=== PATIENT | female | born 1950 | race Caucasian/White ===

== ENCOUNTER 2020-07-26 07:32 | Outpatient (NON) | payer OTHER, SELFPAY ==
[2020-07-26 17:37] LABS: SARS-CoV-2 RNA PCR Positive
== END 2020-07-26 07:33 ==
PROVIDERS: PCP Family Medicine Adolescent Medicine; Visit Provider Family Medicine Adolescent Medicine
DX: U07.1 COVID-19 (principal)
CPT/HCPCS: 87635; C9803; U0003

== ENCOUNTER → 2020-11-11 14:59 | Outpatient (CLI) | payer OTHER, SELFPAY ==
--- NOTE | ~2020-11-11 | MM_ITS ---
EXAMINATION: MM screening kailey BI w randy HISTORY: Screening TECHNIQUE: Craniocaudal and mediolateral oblique 3-D tomosynthesis images were obtained and synthetic 2-D images were generated. CAD analysis was submitted and interpreted. COMPARISON: Comparison to multiple prior studies sequentially, with oldest reviewed study dated 11/2010. BREAST PARENCHYMAL COMPOSITION: There are scattered areas of fibroglandular density. FINDINGS: There is no evidence of suspicious mass, calcification, or architectural distortion to sugg est malignancy in either breast. There has been no suspicious interval change. IMPRESSION: 1. No mammographic evidence of malignancy. 2. Recommend routine screening mammography in one year. BI-RADS Category 1: Negative Reviewed, dictated and finalized at location A. ATED [employer]ORMAN
== END ==
PROVIDERS: PCP Family Medicine Adolescent Medicine; Visit Provider Family Medicine Adolescent Medicine
DX: Z12.31 Encounter for screening mammogram for malignant neoplasm of breast (principal)
CPT/HCPCS: 77063; 77067

== ENCOUNTER → 2020-12-02 13:32 | Outpatient (CLI) | payer OTHER, SELFPAY ==
--- NOTE | ~2020-12-02 | MR_ITS ---
EXAMINATION: MR cervical spine wo con EXAM DATE: 12/02/2020 14:37 INDICATION: Left-sided cervical radiculopathy. Neck pain. TECHNIQUE: Multi-sequential, multiplanar MR images of the cervical spine were obtained without contra st. Axial T2, axial T2 MERGE sequence. Sagittal T1, T2, T2 fat saturation images also obtained. Th ere is no prior study for comparison. FINDINGS: There is moderate disc disease at C5-6 and 6-7, mild at C4-5. The vertebral bodies are ali gned in the AP dimension. The spinal cord signal intensity and intrinsic morphology is normal. Cervic omedullary junction is normal in appearance. There are no suspicious marrow signal abnormalities. Par aspinal soft tissue is unremarkable. Level by level evaluation: C2-C3: Disc does not extend beyond the endplate margin. Uncovertebral joint arthropathy: Mild bilateral. Facet joint arthropathy: None. Neural foraminal stenosis: No stenosis. Central canal stenosis: No stenosis. C3-C4: Disc does not extend beyond the endplate margin. Uncovertebral joint arthropathy: Mild bilateral. Facet joint arthropathy: Mild right. Neural foraminal stenosis: No stenosis. Central canal stenosis: No stenosis. C4-C5: There is a mild diffuse disc bulge. Uncovertebral joint arthropathy: Mild to moderate left, mild right. Facet joint arthropathy: Mild bilateral. Neural foraminal stenosis: Mild bilateral. Central canal stenosis: No stenosis. C5-C6: There is a mild diffuse disc bulge. Uncovertebral joint arthropathy: Severe bilateral. Facet joint arthropathy: Mild bilateral. Neural foraminal stenosis: Severe bilateral. Central canal stenosis: Mild. C6-C7: There is a mild diffuse disc bulge. Uncovertebral joint arthropathy: Moderate bilateral. Facet joint arthropathy: Mild. Neural foraminal stenosis: Moderate bilateral. Central canal stenosis: Mild. C7-T1: Disc does not extend beyond the endplate margin. Uncovertebral joint arthropathy: Moderate bilateral. Facet joint arthropathy: Moderate left, mild right. Neural foraminal stenosis: No stenosis. Central canal stenosis: No stenosis. IMPRESSION: 1. Significant neural foraminal stenosis C5-6 more than C6-7. Reviewed, dictated and finalized at location B. GRAPHER
== END ==
PROVIDERS: PCP Family Medicine Adolescent Medicine; Visit Provider Family Medicine Adolescent Medicine
DX: M47.23 Other spondylosis with radiculopathy, cervicothoracic region (principal); M48.03 Spinal stenosis, cervicothoracic region
CPT/HCPCS: 72141

== ENCOUNTER 2020-12-31 09:26 | Observation (INO) | payer OTHER, SELFPAY ==
--- NOTE | ~2020-12-31 | CT_ITS ---
EXAMINATION: CT abdomen pelvis w con DATE: 12/31/2020 10:28 INDICATION: Left lower quadrant abdominal pain TECHNIQUE: Computed tomography (CT) of the abdomen and pelvis was performed with 100 cc Omnipaque 350 intravenous contrast. Automated exposure control and iterative reconstruction technique were employe d. Exam dose: 337.58 mGy-cm total exam DLP. COMPARISON: None. FINDINGS: Heart size is within normal range. No pericardial or pleural effusion. There is minimal ate lectasis at the lung bases. The liver, gallbladder, bile ducts, spleen, pancreas, pancreatic duct, and adrenal glands appear norm al. Approximately 4 mm nonobstructing upper pole right renal calculus. 6 mm upper pole left renal cyst and 4 mm posterior mid left renal cyst. No ureteral calculus or hydro ureteronephrosis is evident. There is atherosclerotic calcification of the abdominal aorta and at the origins of the renal arterie s. No abdominal aortic aneurysm. No intraperitoneal or retroperitoneal or pelvic mass lesion or adeno vanessa or ascites. The urinary bladder is unremarkable. The uterus appears to be surgically absent. Diverticulosis of the left and right colon. There is thickening of the wall of the distal descending colon with pericolic fat stranding, consiste nt with diverticulitis. No abscess is identified. No bowel obstruction or intraperitoneal free air. Small fat-containing umbilical hernia. There is grade 1 anterolisthesis at L4-5 due to degenerative change at the apophyseal joints. There is concavity of the superior vertebral endplates of T9 and T10, chronic. There is degenerative spurring in the lower thoracic and to a lesser extent lumbar spine. Bilateral hip osteoarthritis, greater on the left. No suspicious osteolytic or osteoblastic lesions a re noted. IMPRESSION: Diverticulitis of the distal descending colon; no abscess is noted Diverticulosis of the left and right colon 4 mm nonobstructing upper pole right renal calculus Left renal cysts Reviewed, dictated and finalized at Location A. Reviewed, dictated and finalized at location B.
[2020-12-31 09:31] VITALS: BP 159/84; PULSE 98; RESP 18; TEMP 36.6; O2SAT 100
--- NOTE | 2020-12-31 09:34 | ED.GENADULT ---
HPI - General Adult General Chief complaint: Nausea/Vomiting/Diarrhea Stated complaint: Nausea - Diarrhea Time Seen by Provider: 12/31/20 09:28 Source: RN notes reviewed History of Present Illness HPI narrative: Patient presents emergency department from home for abdominal pain. Patient states that she has been having pain in the left abdomen radiating to the right back for the past 6 days. Patient states the pain is described as sharp and stabbing and radiates into the rectum states is associated with nausea and loose stools. She called her PCP as she has a history of diverticulitis and was started on Cipro and Flagyl 5 days ago but states that symptoms have been worsening. She has been taking Tylenol at home for the pain. Denies any fevers or chills chest pain shortness of breath or any other symptoms Related Data Home Medications Medication Instructions Recorded Confirmed alendronate 70 mg PO 12/31/20 ciprofloxacin HCl mg PO BID-TID 12/31/20 lifitegrast [Xiidra] drp 12/31/20 metronidazole 500 PO TID 12/31/20 simvastatin 40 mg 12/31/20 Allergies Allergy/AdvReac Type Severity Reaction Status Date / Time No Known Allergies Allergy Verified 12/31/20 09:46 Review of Systems Review of Systems: Narrative: Gen.: Denies fevers or chills ENT: Denies congestion Respiratory: Denies shortness of breath or cough CV: Denies chest pain or palpitations GI: See HPI denies burning, urgency, frequency or hematuria Musculoskeletal: Denies back pain or muscle pain Neuro: Denies numbness, tingling, weakness or focal weakness Skin: Denies rash Except as documented, all other systems reviewed and negative [facility] Past Medical History Medical History (Updated 12/31/20 @ 11:11 by Nelson Cast DO) Diverticulitis Social History Social History (Updated 12/31/20 @ 09:35 by Nelson Cast DO) Smoking status: Never smoker Exam Narrative: Exam Narrative: APPEARANCE: No acute distress, nontoxic, resting in bed HEENT: Normocephalic, atraumatic, OMM RESPIRATORY: No respiratory distress, clear to auscultation bilaterally with no rhonchi wheezing or rales CARDIOVASCULAR: RRR s murmur ABDOMINAL: Soft nondistended tender palpation left upper quadrant left lower quadrant no tenderness right upper quadrant right lower quadrant no rebound or guard MUSCULOSKELETAl: Moves all extremities. No clubbing, cyanosis or edema. NEURO: Awake and alert. Following commands, speech normal, no focal deficits SKIN:: Warm, dry. Normal Color PSYCHIATRIC: Normal affect/mood Course Course Emergency Course: Called and discussed with presentation work-up agrees with admission at this time Discussed with patient and family results of workup and diagnosis. Discussed need for admission. Patient and family understand and agree to current treatment plan Vital Signs Vital signs: Vital Signs Temperature 97.8 F 12/31/20 09:31 Pulse Rate 98 12/31/20 09:31 Respiratory Rate 18 12/31/20 09:31 Blood Pressure 159/84 H 12/31/20 09:31 Pulse Oximetry 100 12/31/20 09:31 Temperature 97.8 F 12/31/20 09:31 Pulse Rate 98 12/31/20 09:31 Respiratory Rate 18 12/31/20 09:31 Blood Pressure 159/84 H 12/31/20 09:31 Pulse Oximetry 100 12/31/20 09:31 Medical Decision Making Vital Signs Vital Signs: Vital Signs Temperature 97.8 F 12/31/20 09:31 Pulse Rate 98 12/31/20 09:31 Respiratory Rate 18 12/31/20 09:31 Blood Pressure 159/84 H 12/31/20 09:31 Pulse Oximetry 100 12/31/20 09:31 Temperature 97.8 F 12/31/20 09:31 Pulse Rate 98 12/31/20 09:31 Respiratory Rate 18 12/31/20 09:31 Blood Pressure 159/84 H 12/31/20 09:31 Pulse Oximetry 100 12/31/20 09:31 Lab Data Result diagrams: 12/31/20 09:47 12/31/20 09:47 Labs: Lab Results 12/31/20 12/31/20 12/31/20 Range/Units 09:47 09:47 09:49 WBC 10.2 H (4.5-10.0) K/mm3 RBC 4.63 (4.2-5.4) M/mm
[2020-12-31 09:56] LABS: Basophils Percent Auto 0.4 % (0.2-1.2); Eosinophils Absolute Auto 0.1 K/mm3 (0-0.3); Eosinophils Percent Auto 0.7 % (0-4.4); Hematocrit 41.6 % (37.0-47.0); Hemoglobin 14.3 g/dL (12.0-15.0); Immature Granulocyte Absolute 0.03 K/mm3 (0.00-0.031); Immature Granulocyte Percent A 0.3 % (0-0.5); Lymphocytes Absolute Auto 2.17 K/mm3 (0.9-3.2); Lymphocytes Percent Auto 21.2 % (18.3-44.2); Mean Corpuscular HGB Conc 34.4 g/dl (32-36); Mean Corpuscular Hemoglobin 30.9 pg (26-34); Mean Corpuscular Volume 89.8 fl (80-100); Mean Platelet Volume 9.6 fl (7.4-10.4); Monocytes Absolute Auto 0.5 K/mm3 (0.1-0.6); Monocytes Percent Auto 5.3 % (2.6-8.5); Neutrophils Absolute Auto 7.4 K/mm3 (1.3-6.7); Neutrophils Percent Auto 72.1 % (45.5-73.1); Platelet Count Result 252 k/mm3 (150-375); Red Blood Count 4.63 M/mm3 (4.2-5.4); Red Cell Distribution Width 12.3 % (11.5-14.5); White Blood Count 10.2 K/mm3 (4.5-10.0)
[2020-12-31 10:04] LABS: Add Urine Microscopic? YES; Appearance Urine Cloudy (Clear); Bacteria Urine Trace /hpf; Bilirubin Urine Negative (Negative); Blood Urine Negative (Negative); Color Urine Amber (Yellow); Glucose Urine UA Negative (Negative); Ketones Urine Trace mg/dL (Negative); Leukocyte Esterase Ur 2+ LEU/UL (Negative); Mucus Urine Few /lpf; Nitrate Urine Negative (Negative); Protein Urine 1+ mg/dL (Negative); Specific Grav Ur 1.023 (1.001-1.035); Squamous Epithelial Cell Urine Few /hpf (Few)
[2020-12-31 10:13] LABS: Alanine Aminotransferase 16 U/L (4-35); Albumin Level 4.2 g/dL (3.5-5.1); Alkaline Phosphatase 41 U/L (38-126); Anion Gap 10 mmol/L (8-16); Aspartate Amino Transferase 25 U/L (14-36); Bilirubin,Total 0.7 mg/dL (0.2-1.3); Blood Urea Nitrogen 13 mg/dL (7-17); Carbon Dioxide 24 mmol/L (22-30); Chloride 107 mmol/L (98-107); Estimated CRCL calculation 66 ml/min; Estimated Glomerular Filt Rate > 60; Glucose 162 mg/dL (65-105); Lipase 59 U/L (23-300); Potassium 3.4 mmol/L (3.4-5.0); Sodium 141 mmol/L (137-145)
[2020-12-31] MEDS: SODIUM CHLORIDE 0.9% IV 1,000 ML 999 ML IV CONT (10:56)
[2020-12-31 11:12] VITALS: BP 142/91; PULSE 81; RESP 16; TEMP 36.7; O2SAT 98
[2020-12-31] MEDS: SODIUM CHLORIDE 0.9% IV 1,000 ML 125 ML IV CONT (12:14)
[2020-12-31 13:08] VITALS: BMI 29.2
--- NOTE | 2020-12-31 13:13 | ADMGEN ---
This patient, Randee Morris, was admitted to [facility] Surg Room 321-02. Patient/family oriented to hospital policies and general routines including ID bracelet, bed and alarms, visiting hours, pain management, procedures, bathroom and other care routines, personal items, smoking policy, room service/diet, and visiting hours. Information on how to activate the Rapid Response Team has been discussed. Patient/Family are encouraged to report perceived risks to care and to ask questions if they do not understand what they are told or what they should do.
--- NOTE | 2020-12-31 13:30 | PM.IMHP ---
H&P: HPI History of Present Illness Date/Time: 12/31/20 13:30 Chief Complaint: Abdominal pain. Narrative: This is a 70-year-old female with history of diverticulitis who presented to the emergency department earlier today from home with complaints of abdominal pain. This past Tuesday she developed abdominal pain similar to previous episodes of diverticulitis and she was started on ciprofloxacin and metronidazole by her primary care provider the following day under the assumption of the same. She describes a sharp and stabbing pain in the left side of her abdomen, occasionally radiating to the rectum and low back. She has been taking acetaminophen without a whole lot of benefit. The pain is made worse with coughing, walking, laughing, and even riding in the car and going over small bumps. No significant alleviating factors. She has had some chills but no fever or sweats. Her appetite has also been decreased with some mild nausea, but no vomiting. No blood or mucus in the stool. She reports passing a small, hard stool 2 days ago and passed a small amount of soft, dark brown stool today. As her symptoms did not improve with outpatient antibiotics, she came in today for evaluation. CT of the abdomen and pelvis today did demonstrate uncomplicated diverticulitis, and this will be her 10th such case in the last decade or so.. Review of Systems Review of Systems: Narrative: Twelve systems were reviewed with pertinent positives and negatives as per HPI. Complains of decreased hearing in both ears and is concerned that she may have fluid in the ears. No earache, sinus congestion, or sore throat. She was recently treated for urinary tract infection. As mentioned above she a COVID-19 in July 2020 and her taste is still off since that time. She seems to have a metallic taste when eating and drinking. No chest pain, cough, or shortness of breath. Recent MRI showed bulging discs in the cervical spine, done after she developed paresthesias in the upper extremities. She is currently undergoing physical therapy with some improvement in her symptoms. Except as documented, all other systems were reviewed and are negative. [facility] Past Medical History Medical History (Updated 12/31/20 @ 20:22 by Suly Diaz PA-C) Diverticulitis History of colon polyps Hypercholesterolemia Nephrolithiasis Or millimeter nonobstructing upper pole right renal calculus on CT 12/31/2020. Osteoporosis Surgical History Surgical History (Updated 12/31/20 @ 13:25 by Suly Diaz PA-C) History of bilateral breast reduction surgery (~1996) History of colonoscopy with polypectomy History of total vaginal hysterectomy (~08/2002) Performed for dysfunctional uterine bleeding secondary to fibroids and prolapsed fibroid. Family History Family History Father Diabetes mellitus Heart disease Mother Diabetes mellitus Heart disease Social History Social History (Updated 12/31/20 @ 13:46 by Suly Diaz PA-C) Social History: The patient lives in her own home in [place]. She is . Nonsmoker. She drinks alcohol socially and in moderation. No illicit substance use. She designates her son, Randall Menjivar, as her surrogate decision maker and she wishes to be a full code. Sexual Orientation (if Verbalized by the Patient): Straight or Heterosexual Spiritual care concerns: No Meds Home Medications and Allergies Home Medications Medication Instructions Recorded Confirmed Type alendronate 70 mg PO WEEKLY 12/31/20 12/31/20 History ciprofloxacin HCl 500 mg PO BID-TID 12/31/20 12/31/20 History lifitegrast [Xiidra] drp 12/31/20 History metronidazole 500 mg PO TID 12/31/20 12/31/20 History simvastatin 40 mg HS 12/31/20 12/31/20 History Allergies Allergy/AdvReac Type Severity Reaction Status Date / Time No Known Allergies Allergy Verified 12/31/20 13:27 Vital Signs
[2020-12-31 14:00] VITALS: BP 169/85; PULSE 58; RESP 18; TEMP 36.7; O2SAT 98
--- NOTE | 2020-12-31 16:46 | WPDGICN ---
Assessment and Plan Assessment and plan (1) Diverticulitis: Code(s): K57.92 - Diverticulitis of intestine, part unspecified, without perforation or abscess without bleeding Status: Acute Assessment and Plan: recurrent diverticulitis and failed outpatient therapy, admitted for iv antibiotics liquid diet since she had some many flare-up at some point she may want to see a surgeon as outpatient, she has been reluctant though but she will be agreeable to repeat another colonoscopy in 6-8 weeks that I can do as outpatient (2) LLQ pain: Code(s): R10.32 - Left lower quadrant pain Status: Acute Assessment and Plan: from diverticulitis, continue to monitor (3) Nausea: Code(s): R11.0 - Nausea Status: Acute Assessment and Plan: medical treatment (4) Renal calculus: Code(s): N20.0 - Calculus of kidney Status: Acute Assessment and Plan: found by ct scan GI Consult Note Consult date/time: 12/31/20 16:46 Reason for consult: recurrent diverticulitis HPI: Randee Morris is a 70 year old female history of recurrent diverticulitis who started with pain in llq 5 days ago similar to previous episodes of diverticulitis, she called her doctor who prescribed oral antibiotics. Eventually pain got worse and more severe, sharp and stabbing pain with radiation into the rectum and back. Also had nausea and chills. Finally she came to ER, wbc 10.5k, CT scan reviewed with diverticulitis of the distal descending colon; no abscess is noted, diverticulosis of the left and right colon. Started on iv antibiotics and admitted to hospital. Her last colonoscopy about 4-5 years ago and had polyps. She says that first attack of diverticulitis about 10 years ago and normally once a year, she thinks that had 8-10 altogether but this is the first time that she had to be admitted to the hospital. Review of Systems Constitutional: Constitutional: Reports no additional constitutional complaints Eyes: Eyes: Denies blurry vision ENT: Reports Normal hearing present Cardiovascular: Cardiovascular: Denies chest pain Respiratory: Respiratory: Denies dyspnea Gastrointestinal: Gastrointestinal: Reports abdominal pain and Reports nausea Genitourinary: Genitourinary: Denies hematuria Musculoskeletal: Musculoskeletal: Denies neck pain Integumentary/Breasts: Skin/Breast: Denies dry skin Neurologic: Denies headache(s) Psychiatric: Psychiatric: Denies behavioral changes [facility] Past Medical History Medical History (Updated 12/31/20 @ 16:56 by Vladislav Flores MD) Diverticulitis History of colon polyps Hypercholesterolemia LLQ pain Nausea Nephrolithiasis Or millimeter nonobstructing upper pole right renal calculus on CT 12/31/2020. Osteoporosis Surgical History Surgical History (Updated 12/31/20 @ 13:25 by Suly Diaz PA-C) History of bilateral breast reduction surgery (~1996) History of colonoscopy with polypectomy History of total vaginal hysterectomy (~08/2002) Performed for dysfunctional uterine bleeding secondary to fibroids and prolapsed fibroid. Family History Family History Father Diabetes mellitus Heart disease Mother Diabetes mellitus Heart disease Social History Social History (Updated 12/31/20 @ 13:46 by Suly Diaz PA-C) Social History: The patient lives in her own home in [place]. She is . Nonsmoker. She drinks alcohol socially and in moderation. No illicit substance use. She designates her son, Randall Menjivar, as her surrogate decision maker and she wishes to be a full code. Sexual Orientation (if Verbalized by the Patient): Straight or Heterosexual Spiritual care concerns: No Meds Home Medications and Allergies Home Medications Medication Instructions Recorded Confirmed Type alendronate 70 mg PO WEEKLY 12/31/20 12/31/20 History ciproflo
[2020-12-31 17:24] VITALS: O2SAT 95
[2020-12-31] MEDS: CARBAMIDE PEROXIDE 6.5% OT SOLN 15 ML BTL 5 DROP EACH EAR (17:34)
[2020-12-31] MEDS: traMADol HCL (*CRX) 25 MG TABLET PO (17:34)
[2020-12-31 21:43] VITALS: BP 153/83; PULSE 78; RESP 18; TEMP 36.8; O2SAT 97
[2021-01-01] MEDS: SODIUM CHLORIDE 0.9% IV 1,000 ML 125 ML IV CONT (00:03)
[2021-01-01] MEDS: traMADol HCL (*CRX) 25 MG TABLET PO ×2 (05:20→11:42)
[2021-01-01 06:00] VITALS: BP 153/89; PULSE 83; RESP 18; TEMP 37.4; O2SAT 96
[2021-01-01 06:36] LABS: Basophils Percent Auto 0.3 % (0.2-1.2); Eosinophils Absolute Auto 0.1 K/mm3 (0-0.3); Eosinophils Percent Auto 1.9 % (0-4.4); Hematocrit 39.5 % (37.0-47.0); Hemoglobin 13.5 g/dL (12.0-15.0); Immature Granulocyte Absolute 0.01 K/mm3 (0.00-0.031); Immature Granulocyte Percent A 0.1 % (0-0.5); Lymphocytes Absolute Auto 2.53 K/mm3 (0.9-3.2); Lymphocytes Percent Auto 34.6 % (18.3-44.2); Mean Corpuscular HGB Conc 34.2 g/dl (32-36); Mean Corpuscular Hemoglobin 30.8 pg (26-34); Mean Platelet Volume 9.7 fl (7.4-10.4); Monocytes Absolute Auto 0.5 K/mm3 (0.1-0.6); Monocytes Percent Auto 7.1 % (2.6-8.5); Neutrophils Absolute Auto 4.1 K/mm3 (1.3-6.7); Platelet Count Result 248 k/mm3 (150-375); Red Blood Count 4.39 M/mm3 (4.2-5.4); Red Cell Distribution Width 12.1 % (11.5-14.5); White Blood Count 7.3 K/mm3 (4.5-10.0)
[2021-01-01 06:46] LABS: Anion Gap 6 mmol/L (8-16); Blood Urea Nitrogen 6 mg/dL (7-17); Calcium 8.4 mg/dL (8.4-10.2); Carbon Dioxide 26 mmol/L (22-30); Chloride 112 mmol/L (98-107); Estimated CRCL calculation 56 ml/min; Estimated Glomerular Filt Rate > 60; Glucose 106 mg/dL (65-105); Magnesium 1.9 mg/dL (1.6-2.3); Potassium 3.1 mmol/L (3.4-5.0); Sodium 144 mmol/L (137-145)
[2021-01-01] MEDS: POTASSIUM CHLORIDE 20 MEQ PACKET (FOR LIQUID) 40 MEQ PO (08:45)
[2021-01-01] MEDS: CARBAMIDE PEROXIDE 6.5% OT SOLN 15 ML BTL 5 DROP EACH EAR ×2 (08:47→17:35)
--- NOTE | 2021-01-01 09:47 | PM.IMPN ---
Progress Note: A&P Assessment and Plan (1) Diverticulitis: Code(s): K57.92 - Diverticulitis of intestine, part unspecified, without perforation or abscess without bleeding Status: Acute Assessment and Plan: Recurrent episode of diverticulitis, failed conservative outpatient therapy. She estimates this will be her 10th episode of diverticulitis over the last decade. She is anxious to leave, although we discussed continued treatment given she failed op therapy. Will discuss with Dr. Jack. Appears overall clinical improvement with resolved luekocytosis, afebrile, and stable VS CLD for now; will discuss advancing diet with GI Antiemetics and analgesics available as needed. Continue IV Zosyn given no improvement with Cipro/Flagyl. Dr. Jack has seen the patient and has plans for colonoscopy in 6 to 8 weeks. She has also been followed by Dr. Pimentel in the past May consider surgery given recurrent episodes. (2) Elevated blood pressure reading: Code(s): R03.0 - Elevated blood-pressure reading, without diagnosis of hypertension Status: Acute Assessment and Plan: Blood pressures were reviewed. They are running a bit high in the 140s - 160 systolic. No history of hypertension. Continue to monitor blood pressures closely for now. I suspect they will improve with pain control. (3) Renal calculus: Code(s): N20.0 - Calculus of kidney Status: Acute Assessment and Plan: 4 millimeter nonobstructing upper pole right renal calculus noted on CT today. No acute issues. F/u with PCP (4) Hypercholesterolemia: Code(s): E78.00 - Pure hypercholesterolemia, unspecified Status: Acute Assessment and Plan: LFTs within normal limits. resume statin Subjective Date/time seen: 01/01/21 09:47 Interval history: Patient is a 70-year-old female with history of diverticulitis who is seen in follow up for acute uncomplicated diverticulitis that failed outpatient therapy. Patient states she fees somewhat better today, but feels a bit anxious/eager to leave. However, she does note she still has left abdominal pressure although her stabbing pain in rectum has resolved. She is tolerating CLD thus far. She had a loose, nonbloody BM today. No other symptoms at this moment. Denies f/c/s, cp/palpitations, sob/cough, calf pain/swelling. Review of Systems Review of Systems: All systems reviewed & are unremarkable except as noted in HPI and below Exam Narrative: Exam Narrative: General: Patient resting supine in bed with head raised in no acute distress. HEENT: Normocephalic, EOMI, oral mucosa moist. Cardiovascular: Rate and rhythm are regular. No notable murmur, rub, or gallop. Respiratory: Lungs clear to auscultation all dumas. Non-labored breathing. Abdomen: Soft, mild ttp left side particularly LLQ, non-distended, bowel sounds present. Extremities: Peripheral pulses intact. No edema. NTTP b/l calves Neuro: No focal neurological deficits. Speech is clear. Objective Data Vital Signs Vital Signs: Last Vital Signs Temp 99.4 F 01/01/21 06:00 Pulse 83 01/01/21 06:00 Resp 18 01/01/21 06:00 BP 153/89 H 01/01/21 06:00 Pulse Ox 96 01/01/21 06:00 Intake/Output Intake/Output: Intake & Output 12/29/20 12/30/20 12/31/20 01/01/21 23:59 23:59 23:59 23:59 Intake Total 3780 570 Balance 3780 570 Meds/Results Medications: Active Medications Generic Name Dose Route Start Last Admin Trade Name Freq PRN Reason Stop Dose Admin Carbamide Peroxide 5 drop 12/31/20 18:00 01/01/21 08:47 Carbamide Peroxide 6.5% Ot Soln 15 Ml Btl EACH EAR 01/04/21 18:01 5 drop BID LIBBY Administration Piperacillin/Tazobactam/Dextrose 3.375 gm in 50 mls @ 100 mls/hr 12/31/20 18:00 01/01/21 05:20 Zosyn 3.375 Gm/D5w 50m
[2021-01-01 14:00] VITALS: BP 129/77; PULSE 82; RESP 20; TEMP 36.7; O2SAT 96
--- NOTE | 2021-01-01 16:34 | WPDGIPROGNO ---
Progress Note: A&P Assessment and Plan (1) Diverticulitis: Code(s): K57.92 - Diverticulitis of intestine, part unspecified, without perforation or abscess without bleeding Status: Acute Assessment and Plan: better with iv abx, no more leukocytosis advance diet as tolerated she is hoping to go home tomorrow and complete oral abx (probably augmentin) will need to do another colonoscopy in 6-8 weeks and she may want to consider to see a surgeon because frequent diverticulitis attacks (2) LLQ pain: Code(s): R10.32 - Left lower quadrant pain Status: Acute Assessment and Plan: much better (3) Nausea: Code(s): R11.0 - Nausea Status: Acute Assessment and Plan: resolved Subjective Date/time seen: 01/01/21 16:34 Interval history: less pain and feeling better, tolerating liquid diet Review of Systems Review of Systems: All systems reviewed & are unremarkable except as noted in HPI and below Exam Const: General: comfortable and no acute distress HENMT: General nose exam: Normal nares present Eyes: General: appearance normal, both eyes and all related structures Neck: Neck: supple Resp: Auscultation: clear to auscultation bilaterally Cardio: Rate: regular rate GI: GI Palp: Yes Soft to palpation and Yes Tenderness to palpation present (GI) (less ttp in llq today, better, no rebound) Auscultation: normal bowel sounds Skin: General skin exam: normal color Neuro: Speech: normal speech Motor exam (neuro): Normal motor muscle tone present throughout Extrem: General: no edema Psych: Mental Status: mental status grossly normal Objective Data Vital Signs Vital Signs: Vital Signs - 24 hr 12/31/20 17:24 12/31/20 21:43 01/01/21 06:00 Temperature 98.2 F 99.4 F Pulse Rate 78 83 Respiratory Rate 18 18 Blood Pressure 153/83 H 153/89 H Pulse Oximetry 95 97 96 01/01/21 14:00 Temperature 98.1 F Pulse Rate 82 Respiratory Rate 20 Blood Pressure 129/77 Pulse Oximetry 96 Intake/Output Intake/Output: Intake & Output 12/29/20 12/30/20 12/31/20 01/01/21 23:59 23:59 23:59 23:59 Intake Total 3780 860 Balance 3780 860 Meds/Results Medications: Active Medications Generic Name Dose Route Start Last Admin Trade Name Freq PRN Reason Stop Dose Admin Carbamide Peroxide 5 drop 12/31/20 18:00 01/01/21 08:47 Carbamide Peroxide 6.5% Ot Soln 15 Ml Btl EACH EAR 01/04/21 18:01 5 drop BID LIBBY Administration Piperacillin/Tazobactam/Dextrose 3.375 gm in 50 mls @ 100 mls/hr 12/31/20 18:00 01/01/21 11:46 Zosyn 3.375 Gm/D5w 50ml Pm IVPB 100 mls/hr Q6H LIBBY Administration Simvastatin 40 mg 01/01/21 21:00 Simvastatin 20 Mg Tablet PO HS LIBBY Tramadol HCl 25 mg 12/31/20 17:21 01/01/21 11:42 Tramadol Hcl (*Crx) 25 Mg Tablet PO 25 mg Q6H PRN Administration Pain Rated 4-6 Radiology Results: ITS Impressions Abdomen/Pelvis CT 12/31/20 10:30 IMPRESSION: Diverticulitis of the distal descending colon; no abscess is noted Diverticulosis of the left and right colon 4 mm nonobstructing upper pole right renal calculus Left renal cysts Labs Labs: Laboratory Results - last 24 hr 01/01/21 01/01/21 06:01 06:01 WBC 7.3 RBC 4.39 Hgb 13.5 Hct 39.5 MCV 90.0 MCH 30.8 MCHC 34.2 RDW 12.1 Plt Count 248 MPV 9.7 Immature Gran % (Auto) 0.1 Neut % (Auto) 56.0 Lymph % (Auto) 34.6 [place] % (Auto) 7.1 Eos % (Auto) 1.9 Baso % (Auto) 0.3 Lymph # (Auto) 2.53 [place] # (Auto) 0.5 Eos # (Auto) 0.1 Baso # (Auto) 0.0 Abs Immat Gran (auto) 0.01 Absolute Neuts (auto) 4.1 Absolute Nucleated RBC 0.0 Nucleated RBC % 0.0 Sodium 144 Potassium 3.1 L Chloride 112 H Carbon Dioxide 26 Anion Gap 6 L BUN 6 L D Creatinine 0.70 Estim Creat Clear Calc 56 Estimated GFR > 60 Glucose 106 H Calcium 8.4 Magnesium 1.9
[2021-01-01] MEDS: SIMVASTATIN 20 MG TABLET 40 MG PO (21:00)
[2021-01-01 21:29] VITALS: BP 151/96; PULSE 78; RESP 20; TEMP 36.4; O2SAT 98
[2021-01-02 05:52] VITALS: BP 149/88; PULSE 72; RESP 20; TEMP 36.6; O2SAT 99
[2021-01-02 06:08] LABS: Hematocrit 39.5 % (37.0-47.0); Hemoglobin 13.3 g/dL (12.0-15.0); Mean Corpuscular HGB Conc 33.7 g/dl (32-36); Mean Corpuscular Volume 89.2 fl (80-100); Mean Platelet Volume 9.4 fl (7.4-10.4); Platelet Count Result 281 k/mm3 (150-375); Red Blood Count 4.43 M/mm3 (4.2-5.4)
[2021-01-02] MEDS: ACETAMINOPHEN 325 MG TABLET 650 MG PO (06:22)
[2021-01-02 06:29] LABS: Anion Gap 4 mmol/L (8-16); Blood Urea Nitrogen 10 mg/dL (7-17); Calcium 8.8 mg/dL (8.4-10.2); Carbon Dioxide 29 mmol/L (22-30); Chloride 110 mmol/L (98-107); Estimated CRCL calculation 55 ml/min; Estimated Glomerular Filt Rate > 60; Glucose 94 mg/dL (65-105); Magnesium 2.1 mg/dL (1.6-2.3); Potassium 3.7 mmol/L (3.4-5.0); Sodium 143 mmol/L (137-145)
[2021-01-02 08:00] VITALS: PULSE 72; RESP 20; O2SAT 95
[2021-01-02] MEDS: CARBAMIDE PEROXIDE 6.5% OT SOLN 15 ML BTL 5 DROP EACH EAR (08:17)
[2021-01-02 09:33] VITALS: O2SAT 95
--- NOTE | 2021-01-02 11:28 | PM.DS ---
DS: Admitting Diagnosis Admitting Diagnosis Admitting Diagnosis: Acute diverticulitis DS: Discharge Diagnosis Discharge Diagnosis (1) Diverticulitis: Code(s): K57.92 - Diverticulitis of intestine, part unspecified, without perforation or abscess without bleeding Status: Acute Assessment and Plan: Recurrent episode of diverticulitis, failed conservative outpatient therapy (cipro/flagyl x 5 days). She estimates this will be her 10th episode of diverticulitis over the last decade. Appears overall clinical improvement with resolved leukocytosis, afebrile, and stable VS. No pain at this moment, tolerating Low fiber diet. discussed with Dr. Jack and is agreeable with discharge today; plans to transition to PO augmentin Low fiber diet; discussed transitioning to High Fiber diet in about a week Tylenol for pain Continue IV Zosyn with noon dose today (2 days); transition to PO Augmentin tonight and continue through morning of 01/10 to complete 10 days total of penicillin antibiotics. F/u with PCP in 1-[address] Jack has seen the patient and has plans for colonoscopy in 6 to 8 weeks. She has also been followed by Dr. Pimentel in the past May consider surgery given recurrent episodes. (2) Elevated blood pressure reading: Code(s): R03.0 - Elevated blood-pressure reading, without diagnosis of hypertension Status: Acute Assessment and Plan: Blood pressures were reviewed. They are running a bit high in the 140s sys. No history of hypertension. Possible a bit of white coat syndrome as patient does appear a bit anxious Daily BP at home F/u with PCP (3) Renal calculus: Code(s): N20.0 - Calculus of kidney Status: Acute Assessment and Plan: 4 millimeter nonobstructing upper pole right renal calculus noted on CT today. No acute issues. F/u with PCP (4) Hypercholesterolemia: Code(s): E78.00 - Pure hypercholesterolemia, unspecified Status: Acute Assessment and Plan: LFTs within normal limits. Continue statin DS: Summary Hospital Course Reason for hospitalization: Acute diverticulitis Hospital Course: Date of arrival: 12/31/20 Date of discharge: 01/01/21 Patient is a 70-year-old female with history of diverticulitis who presented to the emergency department on 12/31 from home with complaints of abdominal pain. On 12/26, patient developed abdominal pain similar to previous episodes of diverticulitis and was started on Cipro and Flagyl per her PCP on 12/27 for treatment under the assumption of the same. As her symptoms did not improve with outpatient antibiotics, she proceeded to the ED on 12/31 for further evaluation and CT abd/pelvis noted uncomplicated diverticulitis and was started on IV Zosyn in the ED. Dr. Flores (GI) was consulted for further input/management. Patient follows Dr. Pimentel as an outpatient. Patient admitted to the hospitalist service under this setting for further management/treatment. Please see H&P for further details. After admission, patient continued on IV zosyn throughout her stay. Dr. Jack evaluated the patient and recommended a couple days of IV antibiotics and transition to PO Augmentin on discharge given failure to treatment with PO cipro and flagyl. Her pain had significantly improved early in her course and her diet was advanced to a low fiber diet. Patient had clinically improved on 01/02 for medical discharge. Leukocytosis had resolved; vital signs were stable and she was afebrile. Plan was for her to continue antibiotics with Augmentin through morning of 01/10 or unless specified by her PCP. She was to follow up with GI after discharge for possible colonoscopy in 6-8 weeks. Low fiber diet was recommended for at least 1 week and then transition to high fiber diet as tolerated. Patient ag
== END 2021-01-02 12:45 | disposition home or self-care (01) ==
LOC: ANHED 11:11 → ANH3MEDSUR 11:11
PROVIDERS: Physician Assistant; Admitting Provider Internal Medicine; Emergency Provider Emergency Medicine; PCP Family Medicine Adolescent Medicine; Visit Provider Family Medicine
DX: K57.92 Diverticulitis of intestine, part unspecified, without perforation or abscess without bleeding (principal); R03.0 Elevated blood-pressure reading, without diagnosis of hypertension; N20.0 Calculus of kidney; E78.00 Pure hypercholesterolemia, unspecified
CPT/HCPCS: 36415; 74177; 80048; 80053; 81001; 83690; 83735; 85025; 85027; 96361; 96365; 96366; 96376; 99285; A9270; G0378; J2543; J7030; Q9967

== ENCOUNTER → 2021-02-16 02:34 | Outpatient (CLI) | payer OTHER, SELFPAY ==
[2021-02-16 19:19] LABS: SARS-CoV-2 RNA PCR Negative
== END ==
PROVIDERS: PCP Family Medicine Adolescent Medicine; Visit Provider Internal Medicine Gastroenterology
DX: Z01.812 Encounter for preprocedural laboratory examination (principal); Z20.822 Contact with and (suspected) exposure to COVID-19
CPT/HCPCS: C9803; U0003; U0005

== ENCOUNTER 2021-02-19 00:08 | Day surgery (SDC) | payer OTHER, SELFPAY ==
[2021-02-09 13:59] VITALS: BMI 25.4
[2021-02-19 07:40] VITALS: BP 121/94; PULSE 85; RESP 16; TEMP 36.4; O2SAT 100; BMI 25.0
[2021-02-19] MEDS: LACTATED RINGERS 1,000 ML 150 ML IV CONT (07:51)
--- NOTE | 2021-02-19 07:56 | P.PNAN_ITS ---
Anes - Initial Pre Proc Eval Procedure: Operation Date: 02/19/21 08:45 Proposed Procedures p Colonoscopy - Nba Pimentel MD Date/Time: 02/19/21 07:56 Surgeon: Nba Pimentel MD Pre Op Diagnosis: diverticulitis Patient Data Age: 70 Gender: F Height: 5 ft 1 in Weight: 60.2 kg Last Vital Signs Temp 36.4 C L 02/19/21 07:40 Pulse 85 02/19/21 07:40 Resp 16 02/19/21 07:40 BP 121/94 H 02/19/21 07:40 Pulse Ox 100 02/19/21 07:40 Allergies Allergy/AdvReac Type Severity Reaction Status Date / Time No Known Allergies Allergy Verified 02/19/21 07:39 Home Medications Medication Instructions Recorded Confirmed Type alendronate 70 mg PO WEEKLY 12/31/20 02/19/21 History simvastatin 40 mg HS 12/31/20 02/19/21 History acetaminophen [Mapap 650 mg PO Q6H PRN #0 tablet 01/02/21 02/19/21 Rx (acetaminophen)] Patient hx anesthesia problems: none Family hx anesthesia problems: none PMFSH Past Medical History Medical History Diverticulitis History of colon polyps Hypercholesterolemia Nephrolithiasis Or millimeter nonobstructing upper pole right renal calculus on CT 12/31/2020. Osteoporosis Surgical History Surgical History History of bilateral breast reduction surgery (~1996) History of colonoscopy with polypectomy History of total vaginal hysterectomy (~08/2002) Performed for dysfunctional uterine bleeding secondary to fibroids and prolapsed fibroid. Family History Family History Father Diabetes mellitus Heart disease Mother Diabetes mellitus Heart disease Social History Social History Social History: The patient lives in her own home in [place]. She is . Nonsmoker. She drinks alcohol socially and in moderation. No illicit substance use. She designates her son, Randall Menjivar, as her surrogate decision maker and she wishes to be a full code. Smoking status: Never smoker Alcohol intake: never Substance use: never Substance use type: does not use Living arrangements: alone Spiritual care concerns: No Anes - Eval Final PreProcedure Day of Procedure 02/19/21 07:56 Patient weight: normal Heart: regular rate and rhythm Lungs: clear to auscultation Airway: Mallampati scale class II Neurological: alert and oriented Last oral intake: >/= 8 hours ASA classification: II Emergent: no Anesthetic plan: proceed Anesthesia type and monitoring: general GIVS and standard monitoring Informed Consent: The patient's anesthetic plan and its attendant risks and benefits were discussed with the patient/family/POA. Questions were solicited and answers provided to the satisfaction of the patient/family/POA.
--- NOTE | 2021-02-19 08:56 | WPDGICN ---
Assessment and Plan Assessment and plan (1) Diverticulitis: Code(s): K57.92 - Diverticulitis of intestine, part unspecified, without perforation or abscess without bleeding Status: Acute Assessment and Plan: Patient hospitalized with recent episode of diverticulitis. She reports many episodes over last several years. Plan is for colonoscopy to assess status of her diverticular disease. To ensure this is resolved. High-fiber diet is advised. patient should avoid popcorn. We discussed possible elective surgery because of recurrent nature of her diverticular disease and currently she refuses this. Further recommendations will be given after endoscopy. GI Consult Note Consult date/time: 02/19/21 08:57 HPI: Randee Morris is a 70 year old female presents for colonoscopy. Patient has recent hospitalization for diverticulitis. Patient has now recovered denies any abdominal pain. He has completed a course of antibiotics. Patient reports perhaps 10 episodes of diverticulitis over the last 10 years. All of these have been treated with antibiotics orally as an outpatient. Until most recent course requiring hospitalization last month. Patient denies any weight loss or bleeding. Currently has no fever. She states be several episodes were precipitated by popcorn. Patient's family history is noncontributory. Patient presents today for colonoscopy given recent episode of diverticulitis. Review of Systems Review of Systems: All systems reviewed & are unremarkable except as noted in HPI and below PMFSH Past Medical History Medical History Diverticulitis History of colon polyps Hypercholesterolemia Nephrolithiasis Or millimeter nonobstructing upper pole right renal calculus on CT 12/31/2020. Osteoporosis Surgical History Surgical History History of bilateral breast reduction surgery (~1996) History of colonoscopy with polypectomy History of total vaginal hysterectomy (~08/2002) Performed for dysfunctional uterine bleeding secondary to fibroids and prolapsed fibroid. Family History Family History Father Diabetes mellitus Heart disease Mother Diabetes mellitus Heart disease Social History Social History Social History: The patient lives in her own home in [place]. She is . Nonsmoker. She drinks alcohol socially and in moderation. No illicit substance use. She designates her son, Randall Menjivar, as her surrogate decision maker and she wishes to be a full code. Smoking status: Never smoker Alcohol intake: never Substance use: never Substance use type: does not use Living arrangements: alone Spiritual care concerns: No Meds Home Medications and Allergies Home Medications Medication Instructions Recorded Confirmed Type alendronate 70 mg PO WEEKLY 12/31/20 02/19/21 History simvastatin 40 mg HS 12/31/20 02/19/21 History acetaminophen [Mapap 650 mg PO Q6H PRN #0 tablet 01/02/21 02/19/21 Rx (acetaminophen)] Allergies Allergy/AdvReac Type Severity Reaction Status Date / Time No Known Allergies Allergy Verified 02/19/21 07:39 Vital Signs Vital Signs - 24 hr 02/19/21 07:40 Temperature 97.5 F L Pulse Rate 85 Respiratory Rate 16 Blood Pressure 121/94 H Pulse Oximetry 100 Exam Narrative: Exam Narrative: Physical exam reveals patient to be alert. Vital signs stable. HEENT exam unremarkable. Patient is anicteric. Lungs are clear to auscultation and percussion. Heart is without murmur or extra sounds. Abdominal exam bowel sounds are present soft nontender with no hepatosplenomegaly. Digital external rectal exam normal.
[2021-02-19 08:58] VITALS: BP 94/67; PULSE 76; RESP 16; O2SAT 97
[2021-02-19 09:08] VITALS: BP 106/77; PULSE 73; RESP 16; O2SAT 98
[2021-02-19 09:18] VITALS: BP 113/70; PULSE 67; RESP 16; O2SAT 99
== END 2021-02-19 09:28 | disposition home or self-care (01) ==
PROVIDERS: PCP Family Medicine Adolescent Medicine; Visit Provider Internal Medicine Gastroenterology
PROC: 0DJD8ZZ Inspection of Lower Intestinal Tract, Via Natural or Artificial Opening Endoscopic (ICD-10-PCS; CPT 45378; principal; 2021-02-19 08:45)
DX: Z12.11 Encounter for screening for malignant neoplasm of colon (principal); K57.30 Diverticulosis of large intestine without perforation or abscess without bleeding; K64.8 Other hemorrhoids; Z87.19 Personal history of other diseases of the digestive system; M81.0 Age-related osteoporosis without current pathological fracture; E78.00 Pure hypercholesterolemia, unspecified; Z86.010 Personal history of colon polyps
CPT/HCPCS: G0105; C9803; J2704; J7120; U0003; U0005

== ENCOUNTER 2021-06-20 14:56 | Emergency (ER) | payer OTHER, SELFPAY ==
[2021-06-20 14:57] VITALS: BP 182/96; PULSE 83; RESP 16; TEMP 36.7; O2SAT 100
--- NOTE | 2021-06-20 15:43 | PC.NURSE ---
Reports that her vision is back to normal. Is going to leave and see opthamologist next week.
== END 2021-06-20 15:43 | disposition left against medical advice (07) ==
LOC: ANHED 16:05
PROVIDERS: PCP Family Medicine Adolescent Medicine
DX: Z53.21 Procedure and treatment not carried out due to patient leaving prior to being seen by health care provider (principal)
CPT/HCPCS: 99199

== ENCOUNTER 2021-07-14 13:15 | Emergency (ER) | payer OTHER, SELFPAY ==
--- NOTE | 2021-07-14 13:24 | PC.NURSE ---
pt asked to get into gown once in exam room. pt reports It's just my arm. seems kind of silly. pt not placed in gown.
[2021-07-14 13:26] VITALS: BP 164/98; PULSE 82; RESP 16; TEMP 36.7; O2SAT 97
[2021-07-14 15:00] LABS: Basophils Percent Auto 0.6 % (0.2-1.2); Eosinophils Absolute Auto 0.1 K/mm3 (0-0.3); Hematocrit 41.1 % (37.0-47.0); Immature Granulocyte Absolute 0.01 K/mm3 (0.00-0.031); Immature Granulocyte Percent A 0.2 % (0-0.5); Lymphocytes Absolute Auto 1.99 K/mm3 (0.9-3.2); Lymphocytes Percent Auto 40.5 % (18.3-44.2); Mean Corpuscular HGB Conc 34.1 g/dl (32-36); Mean Corpuscular Hemoglobin 31.4 pg (26-34); Mean Corpuscular Volume 92.2 fl (80-100); Mean Platelet Volume 9.6 fl (7.4-10.4); Monocytes Absolute Auto 0.3 K/mm3 (0.1-0.6); Monocytes Percent Auto 5.9 % (2.6-8.5); Neutrophils Absolute Auto 2.5 K/mm3 (1.3-6.7); Neutrophils Percent Auto 50.8 % (45.5-73.1); Platelet Count Result 225 k/mm3 (150-375); Red Blood Count 4.46 M/mm3 (4.2-5.4); Red Cell Distribution Width 12.5 % (11.5-14.5); White Blood Count 4.9 K/mm3 (4.5-10.0)
[2021-07-14 15:11] LABS: Prothrombin Time 12.6 Seconds (11.1-14.7)
--- NOTE | 2021-07-14 15:39 | ED.UPPEXIN ---
HPI - Extremity Injury (Upper) General Chief Complaint: Extremity Injury, Upper Stated Complaint: R arm deformity, no known injury Time Seen by Provider: 07/14/21 13:35 Source: patient Mode of arrival: ambulatory Limitations: no limitations History of Present Illness HPI narrative: 70-year-old female Here for an issue with her right forearm Patient is in the process of being worked up for an episode of transient vision loss and as such has been placed on antiplatelet therapy while the work-up proceeds Today she was out just doing normal errands and at their conclusion noticed a fairly large swollen area on the dorsum of her right forearm It slightly tender but she reports more that it feels like it stings She does not remember banging her rubbing it against anything There is no numbness or weakness distally and she has full range of motion No other abnormal bruising or bleeding Related Data Home Medications Medication Instructions Recorded Confirmed alendronate 70 mg PO WEEKLY 12/31/20 02/19/21 simvastatin 40 mg HS 12/31/20 02/19/21 Allergies Allergy/AdvReac Type Severity Reaction Status Date / Time No Known Allergies Allergy Verified 07/14/21 13:29 Review of Systems Review of Systems: All systems reviewed & are unremarkable except as noted in HPI and below Constitutional: Constitutional: Reports no additional constitutional complaints and Denies headache(s) Eyes: Eyes: Reports change in vision ENT: Denies headache(s) and Denies sore throat Cardiovascular: Cardiovascular: Denies chest pain and Denies dyspnea Respiratory: Respiratory: Denies cough and Denies dyspnea Genitourinary: Genitourinary: Denies urinary frequency Musculoskeletal: Musculoskeletal: Denies deformity, Denies arthralgias, Reports joint swelling and Denies numbness Integumentary/Breasts: Skin/Breast: Denies rash and Denies wounds Neurologic: Denies headache(s), Denies focal weakness and Denies numbness Psychiatric: Psychiatric: Reports no additional psychiatric complaints Endocrine: Endocrine: Reports no additional endocrine complaints Hematologic/Lymphatic: Hematologic/Lymphatic: Reports no additional hematologic/lymphatic complaints Allergic/Immunologic: Allergic/Immunologic: Reports no additional allergic/immunologic complaints [facility] Past Medical History Medical History Diverticulitis History of colon polyps Hypercholesterolemia Nephrolithiasis Or millimeter nonobstructing upper pole right renal calculus on CT 12/31/2020. Osteoporosis Surgical History Surgical History History of bilateral breast reduction surgery (~1996) History of colonoscopy with polypectomy History of total vaginal hysterectomy (~08/2002) Performed for dysfunctional uterine bleeding secondary to fibroids and prolapsed fibroid. Family History Family History Father Diabetes mellitus Heart disease Mother Diabetes mellitus Heart disease Social History Social History Social History: The patient lives in her own home in [place]. She is . Nonsmoker. She drinks alcohol socially and in moderation. No illicit substance use. She designates her son, Randall Menjivar, as her surrogate decision maker and she wishes to be a full code. Smoking status: Never smoker Alcohol intake: never Substance use: never Substance use type: does not use Sexual Orientation (if Verbalized by the Patient): Straight or Heterosexual Spiritual care concerns: No Exam Const: General: cooperative, no acute distress and alert Orientation/consciousness: patient oriented x3 (alert) HENMT: Head: normal to inspection, normocephalic and atraumatic Ears: external ears normal Eyes: Conjunctivae: conjunctivae normal EOM: EOMs intact bila
== END 2021-07-14 15:55 | disposition home or self-care (01) ==
PROVIDERS: Emergency Provider Emergency Medicine; PCP Family Medicine Adolescent Medicine
DX: S50.11XA Contusion of right forearm, initial encounter (principal); X58.XXXA Exposure to other specified factors, initial encounter
CPT/HCPCS: 36415; 85025; 85610; 85730; 99283

== ENCOUNTER 2021-07-21 15:11 | Outpatient (CLI) | payer OTHER, SELFPAY ==
--- NOTE | ~2021-07-21 | US_ITS ---
EXAMINATION: US carotid duplex BI EXAM DATE: 07/21/2021 15:47 INDICATION: Amaurosis Fugax Left. TECHNIQUE: Grayscale, color and pulsed Doppler images of the cervical carotid arteries were obtained . The degree of vessel stenosis is placed in one of the following categories: normal, <50% stenosis, 50-69% stenosis, >=70% stenosis but less than near-occlusion, near-occlusion, or occlusion. Note that percent stenosis relative to normal distal artery lumen diameter is indirectly measured from velocit y measurements as described by Karsten, et al. Radiology 2003; 229:340-346. There is no prior study fo r comparison. FINDINGS: RIGHT SIDE: Right common carotid artery peak systolic velocity (PSV in cm/s): 83 Right bulb/internal carotid artery peak systolic velocity (PSV in cm/s): 82 Right internal carotid artery end diastolic velocity (EDV in cm/s): 32 Right ICA/CCA peak systolic ratio: 1.0 Right external carotid artery peak systolic velocity (PSV in cm/s): 104 Right vertebral artery antegrade flow: yes There is mild carotid bulb plaque. Velocity and Doppler waveforms in the common and internal carotid arteries is normal. LEFT SIDE: Left common carotid artery peak systolic velocity (PSV in cm/s): 73 Left bulb/internal carotid artery peak systolic velocity (PSV in cm/s): 93 Left internal carotid artery end diastolic velocity (EDV in cm/s): 40 Left ICA/CCA peak systolic ratio: 1.3 Left external carotid artery peak systolic velocity (PSV in cm/s): 82 Left vertebral artery antegrade flow: yes There is mild carotid bulb plaque. Velocity and Doppler waveforms in the common and internal carotid arteries is normal. IMPRESSION: 1. Less than 50 percent stenosis in the right internal carotid artery. 2. Less than 50 percent stenosis in the left internal carotid artery. > Reviewed, dictated and finalized at location A.
== END 2021-07-21 15:12 | disposition home or self-care (01) ==
LOC: ANHIMG 15:14
PROVIDERS: PCP Family Medicine Adolescent Medicine; Visit Provider Physician Assistant
DX: I65.23 Occlusion and stenosis of bilateral carotid arteries (principal)
CPT/HCPCS: 93880

== ENCOUNTER → 2022-05-05 11:08 | Outpatient (CLI) | payer OTHER, SELFPAY ==
--- NOTE | ~2022-05-05 | DEXA_ITS ---
Bone Density Report Name: PRAVEENA ELDER Age: 71 Sex: Female Ethnicity: White Date of : 1950 Indication: osteopenia; monitoring treatment; parental hip fracture; prior fracture; hysterectomy; postmenopausal Referring Provider: PHILIPPE ROUSSEAU Study: Bone densitometry was performed. Exam Date: May 05, 2022 Accession number: [id number] Bone Density: Region BMD T-score Z-score Classification AP Spine (L1-L4) 0.929 -1.1 1.1 Osteopenia Femoral Neck (Left) 0.791 -0.5 1.4 Normal Total Hip (Left) 0.850 -0.8 0.8 Normal Femoral Neck (Right) 0.680 -1.5 0.4 Osteopenia Total Hip (Right) 0.810 -1.1 0.5 Osteopenia Total Hip Mean 0.830 -1.0 0.7 Normal World Health Organization criteria for BMD impression classify patients as: Normal (T-score at or above -1.0), Osteopenia (T-score between -1.0 and -2.5), or Osteoporosis (T-score at or below -2.5). 10-year Fracture Risk: FRAX not reported because: Treated for osteoporosis Previous Exams: Region Exam Age BMD T-score BMD Change BMD Change Date g/cm2 vs Baseline vs Previous AP Spine(L1-L4) 05/05/2022 71 0.929 -1.1 0.047* 0.087* 05/15/2019 68 0.841 -1.9 -0.040* -0.009 03/31/2017 66 0.851 -1.8 -0.031* -0.002 04/27/2012 61 0.853 -1.8 -0.029* -0.020 07/26/2008 57 0.873 -1.6 -0.008 -0.008 08/08/2006 55 0.882 -1.5 Total Hip(Left) 05/05/2022 71 0.850 -0.8 0.057* 0.076* 05/15/2019 68 0.774 -1.4 -0.019 -0.043* 03/31/2017 66 0.817 -1.0 0.024 -0.019 04/27/2012 61 0.836 -0.9 0.043* -0.020 07/26/2008 57 0.856 -0.7 0.063* 0.063* 08/08/2006 55 0.793 -1.2 Total Hip(Right) 05/05/2022 71 0.810 -1.1 -0.032* 0.046* 05/15/2019 68 0.763 -1.5 -0.079* -0.059* 03/31/2017 66 0.823 -1.0 -0.019 0.003 04/27/2012 61 0.820 -1.0 -0.022 -0.051* 07/26/2008 57 0.871 -0.6 0.029* 0.029* 08/08/2006 55 0.842 -0.8 *Denotes significance at 95% confidence level, LSC for AP Spine = 0.022 g/cm2, LSC for Total Hip = 0.027 g/cm2 Clinical Information Provided by Patient: Has had a low trauma fracture Parent has had a hip fracture Is being treated for osteoporosis Has used the following medications: Fosamax (i.e. alendronate), Vitamin D, Calcium, MTV Has the fol
--- NOTE | ~2022-05-05 | MM_ITS ---
EXAMINATION: MM screening kailey BI w randy HISTORY: Screening mammogram TECHNIQUE: Craniocaudal and mediolateral oblique 3-D tomosynthesis images were obtained and synthetic 2-D images were generated. CAD analysis was submitted and interpreted. COMPARISON: 11/11/2020, 10/29/2018, 10/28/2016 bilateral screening mammogram examinations BREAST PARENCHYMAL COMPOSITION: The breasts are almost entirely fatty. FINDINGS: There is no evidence of suspicious mass, calcification, or architectural distortion to sugg est malignancy in either breast. There has been no suspicious interval change. IMPRESSION: 1. No mammographic evidence of malignancy. 2. Recommend routine screening mammography in one year. BI-RADS Category 1: Negative Reviewed, dictated and finalized at location A.
== END ==
PROVIDERS: PCP Family Medicine Adolescent Medicine; Visit Provider Family Medicine Adolescent Medicine
DX: Z12.31 Encounter for screening mammogram for malignant neoplasm of breast (principal); Z78.0 Asymptomatic menopausal state; M85.851 Other specified disorders of bone density and structure, right thigh; M85.88 Other specified disorders of bone density and structure, other site
CPT/HCPCS: 77063; 77067; 77080

== ENCOUNTER 2024-02-09 09:54 | Outpatient (CLI) | payer OTHER, SELFPAY ==
--- NOTE | ~2024-02-09 | MM_ITS ---
EXAMINATION: MM screening kailey BI w randy HISTORY: Screening mammogram TECHNIQUE: Craniocaudal and mediolateral oblique 3-D tomosynthesis images were obtained and synthetic 2-D images were generated. CAD analysis was submitted and interpreted. COMPARISON: 05/05/2022, 12/01/2020 Screening mammogram examinations BREAST PARENCHYMAL COMPOSITION: The breasts are almost entirely fatty. FINDINGS: There is no evidence of suspicious mass, calcification, or architectural distortion to sugg est malignancy in either breast. There has been no suspicious interval change. IMPRESSION: 1. No mammographic evidence of malignancy. 2. Recommend routine screening mammography in one year. BI-RADS Category 1: Negative Reviewed, dictated and finalized at location A.
== END 2024-02-09 09:55 ==
LOC: MICIMG 09:55
PROVIDERS: PCP Family Medicine Adolescent Medicine; Visit Provider Family Medicine Adolescent Medicine
DX: Z12.31 Encounter for screening mammogram for malignant neoplasm of breast (principal)
CPT/HCPCS: 77063; 77067

== ENCOUNTER 2025-04-08 12:09 | Outpatient (CLI) | payer OTHER, SELFPAY ==
--- NOTE | ~2025-04-08 | XR_ITS ---
Lumbosacral Spine: AP and lateral views Clinical History: Pain Findings: The normal lordotic curve is maintained. No fracture seen. There is 8mm anterolisthesis of L4 over L5. There is moderate to advanced facet arthropathy throughout the lumbar spine. Disc spaces are relatively well-preserved. The sacroiliac joints are normally outlined. Impression: 8 mm anterolisthesis of L4 over L5. Diffuse facet arthropathy. Reviewed, dictated and finalized at location M. Impression: 8 mm anterolisthesis of L4 over L5. Diffuse facet arthropathy.
== END 2025-04-08 12:10 | disposition home or self-care (01) ==
PROVIDERS: PCP Family Medicine Adolescent Medicine; Visit Provider Family Medicine Adolescent Medicine
DX: M43.16 Spondylolisthesis, lumbar region (principal); M47.816 Spondylosis without myelopathy or radiculopathy, lumbar region
CPT/HCPCS: 72100

== ENCOUNTER 2025-04-18 13:58 | Outpatient (CLI) | payer OTHER, SELFPAY ==
--- NOTE | ~2025-04-18 | MR_ITS ---
MRI of the lumbar spine Clinical History: Back pain Technique: Axial T2-weighted images, and sagittal T1-weighted, T2-weighted, and T2 fat-sat images wer e acquired. Findings: There is no fracture in the lumbar spine. There is a 5 mm anterolisthesis of L4 over L5. Mati ne marrow signals are unremarkable. At L1-L2, there is no disc bulge or herniation. No spinal canal stenosis or neural foraminal narrowin g. At L2-L3, there is minimal disc bulge. No spinal canal stenosis or neural foraminal narrowing. At L3-L4, there is minimal disc bulge with moderate facet arthropathy. No central canal stenosis. The re is mild right neural foraminal narrowing. Left neural foramen preserved. At L4-L5, there is diffuse disc bulge with uncovering with severe facet arthropathy. There is severe spinal canal stenosis/thecal sac compression. There is severe bilateral neural foraminal narrowing. At L5-S1, there is minimal disc bulge with moderate facet arthropathy. No central canal stenosis. The re is mild bilateral neural foraminal narrowing. Paravertebral soft tissues are unremarkable. Impression: Severe degenerative spondylitic changes at L4-L5, as detailed above. Moderate degenerative change at L3-L4 and L5-S1. 5 mm anterolisthesis of L4 over L5. Reviewed, dictated and finalized at [facility]. Impression: Severe degenerative spondylitic changes at L4-L5, as detailed above. Moderate degenerative change at L3-L4 and L5-S1. 5 mm anterolisthesis of L4 over L5.
== END 2025-04-18 13:59 | disposition home or self-care (01) ==
LOC: GOSHIMG 13:58
PROVIDERS: PCP Family Medicine Adolescent Medicine; Visit Provider Family Medicine Adolescent Medicine
DX: M47.816 Spondylosis without myelopathy or radiculopathy, lumbar region (principal); M47.817 Spondylosis without myelopathy or radiculopathy, lumbosacral region; M43.16 Spondylolisthesis, lumbar region; M54.31 Sciatica, right side; M54.32 Sciatica, left side
CPT/HCPCS: 72148

== ENCOUNTER 2025-05-06 09:11 | Outpatient (CLI) | payer OTHER, SELFPAY ==
--- NOTE | ~2025-05-06 | XR_ITS ---
XR lumbar spine min 4V 05/06/2025 09:27 Indication: Radiculopathy Procedure: 5 views lumbar spine Comparison: 04/08/2025 Findings: There is moderate multilevel facet hypertrophy at L3-4 through L5-S1 with grade 1 degenerat josias spondylolisthesis at L4-5. Vertebral body heights are maintained. There is mild disc narrowing at L3-4, L4-5 and L5-S1. Pedicles intact. Prominent bridging osteophytes lower thoracic spine. Impression: 1: Moderate lumbar spondylosis with grade 1 degenerative spondylolisthesis at L4-5. Reviewed, dictated and finalized at location A. Impression: 1: Moderate lumbar spondylosis with grade 1 degenerative spondylolisthesis at L 4-5.
== END 2025-05-06 09:12 | disposition home or self-care (01) ==
PROVIDERS: PCP Neurological Surgery; Visit Provider Pain Medicine Pain Medicine
DX: M54.16 Radiculopathy, lumbar region (principal)
CPT/HCPCS: 72110

== ENCOUNTER 2025-05-23 13:36 | Outpatient (CLI) | payer OTHER, SELFPAY ==
--- NOTE | ~2025-05-23 | DEXA_ITS ---
Bone Density Report Name: PRAVEENA ELDER Age: 74 Sex: Female Ethnicity: White Date of : 1950 Indication: postmenopausal; screening for osteoporosis; height loss; hysterectomy; Referring Provider: PHILIPPE ROUSSEAU Study: Bone densitometry was performed. Exam Date: May 23, 2025 Accession number: [id number] Bone Density: Region BMD T-score Z-score Classification AP Spine(L1-L4) 0.930 -1.1 1.3 Osteopenia Femoral Neck (Left) 0.826 -0.2 1.9 Normal Total Hip (Left) 0.907 -0.3 1.5 Normal Femoral Neck (Right) 0.678 -1.5 0.5 Osteopenia Total Hip (Right) 0.857 -0.7 1.1 Normal Total Hip Mean 0.882 -0.5 1.3 Normal World Health Organization criteria for BMD impression classify patients as: Normal (T-score at or above -1.0), Osteopenia (T-score between -1.0 and -2.5), or Osteoporosis (T-score at or below -2.5). 10-year Fracture Risk: FRAX not reported because: Treated for osteoporosis Clinical Information Provided by Patient: Is being treated for osteoporosis Has used the following medications: Fosamax (i.e. alendronate), Vitamin D, Calcium Has the following medical conditions: Hysterectomy Patient maximum height was 61 Drinks caffeinated beverages Onset of menses at age 12 Number of children 2 Impression: The patient has low bone mass, based on the Right Femoral Neck T-score. Discussion: It is important to ask patients whether they are taking their medications and to encourage continued and appropriate compliance with their osteoporosis therapies to reduce fracture risk. It is also important to review their risk factors and encourage appropriate calcium and vitamin D intakes, exercise, fall prevention and other lifestyle measures. Follow-Up: Consider a repeat BMD and Vertebral Fracture Assessment (VFA) exam in 2 years or sooner if medically necessary, to reassess this patient's status. Reported by: VIRGEN on 05/23/2025 2:25:00 PM. Reviewed, dictated and finalized at location A.
--- OUTSIDE RECORDS SUMMARY | 2025-05-23 13:46 | XMS_ITS | Clinical Summary ---
Author Organization [facility] Address [address] [place] [id number] Care Team Providers Care Petroleum Refining Equipment Operator Name Role Phone Florencio Wilkins MD Primary Care Prov ider Allergies No known active allergies Medications alendronate (FOSAMAX) 70 mg tablet Take 1 tablet by mouth once a week 06/12/2021 Active meloxicam (MOBIC) 15 mg tablet Take 1 tablet by mouth daily as needed 05/28/2021 Active simvastatin (ZOCOR) 40 mg tablet Take 1 tablet (40 mg total) by mouth nightly 30 tablet 06/22/2021 Active aspirin 81 mg chewable tablet Take 1 tablet (81 mg total) by mouth daily 90 tablet 06/22/2021 Active clopidogreL (PLAVIX) 75 mg tablet Take 1 tablet (75 mg total) by mouth daily 90 tablet 06/22/2021 Active NIFEdipine (NIFEdipine XL) 30 mg 24 hr tablet Take 1 tablet (30 mg total) by mouth daily 30 tablet 06/22/2021 Active Active Problems Problem Noted Date Diagnosed Date Acute CVA (cerebrovascular accident) 06/21/2021 Other hyperlipidemia 06/21/2021 Osteoarthritis 06/21/2021 Osteopenia after menopause TIA (transient ischemic attack) Surgical History Surgery Date Site/Laterality Comments HYSTERECTOMY EYE SURGERY Left 2014 left torn retina repair; 2020 bilateral cataract extraction and lens implantation TONSILLECTOMY AND ADENOIDECTOMY BREAST SURGERY Bilateral breast reduction HERNIA REPAIR Right inguinal after sustaining an injury OTHER SURGICAL HISTORY Right patella hematoma extraction after sustaining an injury Medical History Medical History Date Comments Other hyperlipidemia 06/21/2021 Osteoarthritis 06/21/2021 Age-related osteoporosis without current patholo gical fracture 06/21/2021 Cervical radiculopathy due to degenerative joint disease of spine C5-C6 Osteopenia after menopause Family History Medical History Relation Name Comments Diabetes Father Heart attack Father Alzheimer's disease Mother Diabetes Mother Heart attack Mother Heart disease Mother Transient ischemic attack Mother Relation Name Status Comments Father (Age 54) marine insurance claim examiner , smoked and consumed excessive alcohol Mother (Age 96) Social History Tobacco Use Types Packs/Day Years Used Date Smoking Tobacco: Never Smokeless Tobacco: Never Alcohol Use Standard Drinks/Week Comments Yes 0 (1 standard drink = 0.6 oz pur e alcohol) occasional Personal Safety Answer Date Recorded Getting School Help Needed Not on file 12/09 Comments No Sex and Gender Information Value Date Recorded Sex Assigned at Not on file Legal Sex Female 3:19 AM [employer] WORKER Gender Identity Not on file Sexual Orientation Not on file Occupation Industry Job Start Date Job End Date retired retail employee Not on file Not on file Not on file Obstetrics History Last Filed Vital Signs Vital Sign Reading Time Taken Comments Blood Pressure 158/96 06/22/2021 3:00 AM CDT Pulse 59 06/22/2021 3:00 AM CDT Temperature 36.4 C (97.5 F) 06/22/2021 3:00 AM CDT Respiratory Rate 18 06/22/2021 3:00 AM CDT Oxygen Saturation 97% 06/22/2021 3:00 AM CDT Inhaled Oxygen Concentration - - Weight 62.2 kg (137 lb 2 oz) 06/21/2021 6:17 AM CDT Height 152.4 cm (5') 06/21/2021 6:17 AM CDT Body Mass Index 26.78 06/21/2021 6:17 AM CDT Plan of Treatment Not on file Insurance [place] [id number] [facility], [place] [facility] Advance Directives For more information, please contact: [phone] * Full Code (Latest Code Status on File) Date Activated Date Inactivated Comments 06/21/2021 4:53 AM 06/22/2021 3:08 PM Care Teams Petroleum Refining Equipment Operator Relationship Specialty Start Date End Date Florencio Wilkins MD [address] [place] [address] PCP - General 04/04/14
== END 2025-05-23 13:37 | disposition home or self-care (01) ==
LOC: ANHIMG 13:44
PROVIDERS: PCP Neurological Surgery; Visit Provider Family Medicine Adolescent Medicine
DX: M85.89 Other specified disorders of bone density and structure, multiple sites (principal); Z78.0 Asymptomatic menopausal state
CPT/HCPCS: 77080

== ENCOUNTER 2025-09-17 12:42 | Outpatient (CLI) | payer OTHER, SELFPAY ==
--- NOTE | ~2025-09-17 | MM_ITS ---
EXAMINATION: MM screening kailey BI w randy HISTORY: Screening. Bilateral reduction mammoplasty. TECHNIQUE: Craniocaudal and mediolateral oblique 3-D tomosynthesis images were obtained and synthetic 2-D images were generated. CAD analysis was submitted and interpreted. COMPARISON: 2023, 2021, and 2020. BREAST PARENCHYMAL COMPOSITION: Not Dense: The breasts are almost entirely fatty FINDINGS: No suspicious masses are seen. There are no suspicious calcifications. Postop changes are seen. No unexplained architectural distortion is seen. There are no skin or nipple abnormalities identified. There is no adenopathy seen on the images submitted. IMPRESSION: No mammographic evidence to suggest malignancy is seen. The patient may return to screening mammography as per ACR guidelines. BI-RADS 2 - Benign. Reviewed, dictated and finalized at location C. [employer] H[employer] T[employer]ION TE[employer]
== END 2025-09-17 12:43 | disposition home or self-care (01) ==
LOC: MICIMG 12:43
PROVIDERS: PCP Family Medicine; Visit Provider Family Medicine
DX: Z12.31 Encounter for screening mammogram for malignant neoplasm of breast (principal)
CPT/HCPCS: 77063; 77067